=== PATIENT | male | born 2000 | race Caucasian/White ===

== ENCOUNTER 2025-01-20 17:41 | Emergency (ER) | payer OTHER, SELFPAY ==
[2025-01-20 17:44] VITALS: BP 121/78
[2025-01-20 18:02] LABS: Hematocrit 43.9 % (39.0-52.0); Hemoglobin 15.4 g/dL (13.0-18.0); Mean Corp Hgb Conc. 35.1 g/dL (33.0-37.0); Mean Corpuscular Volume 81.6 fL (80.0-94.0); Nucleated Red Blood Cells % 0 % (-); Platelet Count 206 10^3/uL (130-400); Red Cell Dist. Width 12.4 % (11.5-14.5)
[2025-01-20 18:26] LABS: Troponin I 0.017 ng/ml
[2025-01-20 18:27] LABS: ALT (SGPT) 25 U/L (0-50); AST (SGOT) 31 U/L (17-59); Albumin 5.4 g/dl (3.5-5.0); Alkaline Phosphatase 69 U/L (38-126); Blood Urea Nitrogen 16 mg/dl (9-20); Calcium 9.8 mg/dl (8.4-10.2); Carbon Dioxide 31 mmol/L (22-30); Chloride 102 mmol/L (98-107); Glucose 89 mg/dl (70-99); Potassium 4.2 mmol/L (3.5-5.1); Sodium 139 mmol/L (135-145); Total Protein 8.3 g/dl (6.3-8.2); eGFR > 60.00
--- NOTE | 2025-01-20 19:43 | ED.GENMED ---
History of Present Illness
General
Chief Complaint: Cardiac Symptoms
Time Seen by Provider: 01/20/25 19:43
History of Present Illness
History of Present Illness:
FOCUSED PAST MEDICAL HISTORY
- No significant past medical history
REVIEW OF OLD RECORDS
- No old records available for review in [facility]
Note:
CHIEF COMPLAINT(S)
- Left-sided chest pain.
HISTORY OF PRESENT ILLNESS
The patient is a 24-year-old male who presents with complaints of chest pain for the past week. He describes the pain as initially sharp and localized to two spots on the left side, near the breast tissue and the center of the chest, which has
recently become a duller sensation. The pain is sore to touch with mild soreness when palpated, and it is not associated with shortness of breath or severe distress. The patient notes that the discomfort is primarily present in the morning.
The patient recalls a recent history in early July of a right-sided rash that appeared similar to a Lyme disease bulls-eye rash, for which he received treatment and noted resolution of the rash. Despite this, the patient experienced no shortness of
breath or other systemic symptoms typically associated with Lyme disease complications such as pericarditis or heart block, and his current heart rhythm appears normal.
Review of diagnostics reveals an EKG showing an incomplete right bundle branch block, which is described to the patient as not associated with his symptoms and a benign finding not uncommon in healthy individuals. Cardiac markers are reportedly
within normal limits, indicating the absence of myocardial infarction or cardiac muscle damage. Oxygen saturation is noted to be 100%.
EXTERNAL RECORDS REVIEWED
An EKG performed during this visit reveals an incomplete right bundle branch block, which is explained as a common and benign finding, unrelated to his symptoms.
SOCIAL HISTORY
The patient mentioned using Tums for heartburn management.
PHYSICAL EXAM
General: Alert, no acute distress.
Skin: Warm, dry.
Head: Normocephalic, atraumatic.
Neck: Supple, trachea midline.
Eye, Ears, Nose, Mouth, and Throat: Oral mucosa moist.
Cardiovascular: Normal peripheral perfusion. No edema.
Respiratory: Respirations are non-labored.
Gastrointestinal: Abdomen nondistended.
Back: Normal range of motion, normal alignment.
Musculoskeletal: Normal range of motion, normal strength.
Neurological: Alert and oriented to person, place, time, and situation. No focal neurological deficit observed.
Psychiatric: Cooperative, appropriate mood and affect.
PLAN
1. Intermittent use of Motrin to manage chest wall inflammation.
2. Initiate omeprazole daily for two weeks to address possible acid reflux contributing to symptoms.
3. Educate the patient on the benign nature of the incomplete right bundle branch block and its lack of association with current symptoms.
4. Advise the patient to return if symptoms worsen or new symptoms develop.
DIFFERENTIAL DIAGNOSIS
The Differential Diagnosis includes, in no particular order and is not limited to:
1. Costochondritis
2. Acid reflux or gastroesophageal reflux disease (GERD)
3. Musculoskeletal chest pain
4. Viral pericarditis
5. Anxiety or panic-related chest pain
6. Pneumonia
7. Pulmonary embolism
8. Pneumothorax
9. Myocardial ischemia
10. Thoracic outlet syndrome
RADIOLOGY
- Consider chest x-ray however the breath sounds are clear and equal knees 100% on room air with no pleuritic component and no shortness of breath
EKG
- Sinus 64, incomplete right bundle branch block with no old to compare, no acute ST abnormality
LABS
- CBC and chemistries unremarkable, troponin 0.017
UPDATE
-SUMMARY OF ENCOUNTER
The patient is a 24-year-old male who presented to the emergency department with complaints of left-sided chest pain persisting for the past week. The patient describes the pain as initially sharp, later becoming a dull sensation, and notes soreness
upon touch. Chest pain is predominantly present in the morning without shortness of breath or severe distress. An EKG performed shows an incomplete right bundle branch block, which is a common benign finding unrelated to the patients symptoms.
Troponin levels were unremarkable and oxygen saturation was maintained at 100% on room air. The patients chest sounds were clear and equal, leading to the suspicion of non-cardiac chest pain. Management involved explanation of the benign EKG finding
and initiating treatment to address potential causes of chest wall inflammation and acid reflux.
ASSESSMENT
Suspected non-cardiac chest pain, possibly related to costochondritis or acid reflux.
PLAN
1. Intermittent use of ibuprofen (Motrin) to manage chest wall inflammation.
2. Initiate omeprazole 20 mg daily for two weeks to manage possible acid reflux.
3. Educate the patient on the benign nature of the incomplete right bundle branch block and its lack of association with the current symptoms.
4. Advise the patient to return if symptoms worsen or new symptoms develop.
INDEPENDENT REVIEW OF LABS AND INTERPRETATION OF TESTS
- My independent review of EKG indicates an incomplete right bundle branch block, which is a benign finding unrelated to current symptoms.
- Troponin levels are unremarkable, indicating no cardiac muscle damage.
PATIENT EDUCATION AND COUNSELING
Educated the patient on the benign findings of the EKG and the nature of the suspected non-cardiac chest pain. Explained the rationale for using ibuprofen to reduce inflammation and omeprazole for managing acid reflux. Advised the patient to monitor
symptoms and seek further evaluation if symptoms persist or worsen.
MEDICATION RECONCILIATION
- Ibuprofen (Motrin) for chest wall inflammation.
- Omeprazole 20 mg daily for two weeks for suspected acid reflux.
MEDICAL DECISION MAKING
- Number and Complexity of Problems Addressed: Chronic conditions affecting care include previous suspected Lyme disease, heartburn, and ongoing chest pain. Differential Diagnoses considered: Costochondritis, Acid reflux or GERD, Musculoskeletal
chest pain, Viral pericarditis, Anxiety or panic-related chest pain, Pneumonia, Pulmonary embolism, Pneumothorax, Myocardial ischemia, Thoracic outlet syndrome.
- Data:
- Category 1: Non-emergency department records reviewed included outpatient treatment for a suspected Lyme disease rash. EKG showing an incomplete right bundle branch block was independently interpreted.
- Category 2: No additional history from independent historians.
- Risk: Prescription medication was prescribed, including omeprazole and ibuprofen for symptom management. Escalation of care including admission/observation was considered given the complexity and risk of the patients presenting complaint. However,
the work-up was reassuring, symptoms were well controlled, vitals were stable, and the patient is reliable for follow-up.
DIAGNOSIS
- Non-cardiac chest pain, suspected costochondritis or GERD (ICD-10: R07.82)
- Incomplete right bundle branch block (benign, ICD-10: I45.10)
Phy Exam
Physical Exam
Physical Exam:
See HPI
Course
Orders/Labs/Results
Orders:
Orders
01/20/25 17:46
ECG [Electrocardiogram (*1)] Urgent
Reason for Study: Chest Pain
EKG- Treatment ONCE
01/20/25 17:55
Complete Blood Count/With Diff Urgent
Comprehensive Metabolic Panel Urgent
Troponin I Urgent
Abnormal Lab Results
01/20/25
17:55
Carbon Dioxide 31 H mmol/L
(22-30)
Total Protein 8.3 H g/dl
(6.3-8.2)
Albumin 5.4 H g/dl
(3.5-5.0)
01/20/25 17:55
01/20/25 17:55
Vital Signs
Initial and Last Documented VS:
Initial Vital Signs
Temp Pulse Resp BP Pulse Ox
36.7 C 62 18 121/78 99
01/20/25 17:44 01/20/25 17:44 01/20/25 17:44 01/20/25 17:44 01/20/25 17:44
Last Documented Vital Signs
Temp Pulse Resp BP Pulse Ox
36.7 C 80 25 140/82 100
01/20/25 17:44 01/20/25 19:47 01/20/25 19:47 01/20/25 19:46 01/20/25 19:47
*Pulse Oximetry
SaO2: 99
Oxygen Mode of Delivery: Room air
Patient hypoxic: no
*Critical Care Note
Total Time (30-74mins, 75-104mins- exclusive of procedures): Not Applicable
ED Attending Note
-
Portions of this chart may have been created with voice recognition software.� Occasional wrong word or��sound alike� substitutions may have occurred due to the inherent limitations of voice recognition software.
Discharge Plan
Departure
Patient Disposition: Home (Routine Discharge)
Date of Disposition: 01/20/25
Time of Disposition: 19:59
Patient with high blood pressure during this ER visit?: Yes
Discharge Problem:
Chest pain
Instructions: Chest Pain (DC), BLOOD PRESSURE
Activity Restrictions/Additional Instructions:
Your EKG shows an incomplete right bundle branch block. However, this would have nothing to do with your symptoms. You could try some intermittent use of vsce-mbi-aettyls Motrin. I recommend 3-4 wtey-cds-gzxzlld ibuprofen (Motrin) every 8 hours
with food for a few days. Return here if worse. You could also try a 2-week course of [id number]-krx-[id number] omeprazole. Return here if worse or other concerns. Cardiac blood work shows no sign of heart attack. Your breath sounds are clear and equal
and your oxygen levels are 100%.
Interventions
Interventions:
*General Assessment Last Done: 01/20/25 17:44
Discharge Date and Time
Print Language: YAKUT
[2025-01-20 19:46] VITALS: BP 140/82
== END 2025-01-20 20:10 | disposition home or self-care (01) ==
LOC: EMR 17:41
PROVIDERS: Emergency Medicine; EMERGENCY PHYSICIAN Emergency Medicine
DX: R07.89 Other chest pain (principal); K21.9 Gastro-esophageal reflux disease without esophagitis; Z79.899 Other long term (current) drug therapy
CPT/HCPCS: 99283; 80053; 84484; 85025; 93005